=== PATIENT | male | born 1990 | race African-American/Black ===

== ENCOUNTER 2021-04-28 16:10 | Emergency (ER) | payer MEDICAID ==
[~2021-04-28] VITALS: Ht 182.9 cm; Wt 90.0 kg
[2021-04-28 16:16] VITALS: BP 128/70
[2021-04-28] MEDS ORDERED: BUPR300T52 MT (18:18)
== END 2021-04-28 18:57 | disposition home or self-care (01) ==
LOC: ER 16:10
DX: Z76.0 Encounter for issue of repeat prescription (principal)
CPT/HCPCS: 99283

== ENCOUNTER 2021-04-30 12:21 | Emergency (ER) | payer MEDICAID ==
[~2021-04-30] VITALS: Ht 180.3 cm; Wt 91.0 kg
[~2021-04-30 12:21] MED LIST: BUPR300T52 MT
[2021-04-30 14:12] LABS: BASOPHILS % 0.4 % (0.0-2.0); EOSINOPHILS % 0.5 % (0.0-5.0); HEMATOCRIT. 42.4 % (42.0-52.0); HEMOGLOBIN. 14.2 g/dL (14.0-18.0); LYMPHOCYTES % 42.4 % (20.0-50.0); MEAN CORPUSCULAR HEMOGLOBIN 31.5 pg (28.0-32.0); MEAN CORPUSCULAR VOLUME 93.8 fL (80.0-94.0); MEAN PLATELET VOLUME 9.1 fl (7.4-10.4); MONOCYTES % 8.5 % (2.0-8.0); NEUTROPHILS % 48.2 % (40.0-76.0); PLATELET 159 x1000/uL (130-400); RED BLOOD CELL COUNT 4.52 mill/uL (4.7-6.1)
[2021-04-30 14:16] LABS: CHLORIDE 107 mEq/L (98-107)
[2021-04-30 14:19] LABS: ETHANOL BLOOD < 10 mg/dL
[2021-04-30 15:41] LABS: CLARITY URINE CLEAR (CLEAR); COLOR URINE YELLOW (YELLOW); KETONES URINE NEGATIVE (NEGATIVE); LEUKOCYTE ESTERASE URINE NEGATIVE (NEGATIVE); NITRITE URINE NEGATIVE (NEGATIVE); OCCULT BLOOD URINE NEGATIVE (NEGATIVE); PROTEIN URINE NEGATIVE (NEGATIVE); SPECIFIC GRAVITY URINE 1.009 (1.005-1.030); UROBILINOGEN URINE 0.2 E.U./dL (0.2-1.0)
[2021-04-30 16:14] LABS: *BARBITURATES SCREEN URINE NEGATIVE (NEGATIVE); *BENZODIAZEPINES SCREEN URINE NEGATIVE (NEGATIVE); *COCAINE SCREEN URINE NEGATIVE (NEGATIVE); METHADONE URINE SCREEN NEGATIVE (NEGATIVE); OPIATES URINE SCREEN NEGATIVE (NEGATIVE)
[2021-04-30 16:15] LABS: *AMPHETAMINES SCREEN URINE NEGATIVE (NEGATIVE); CANNABINOID URINE SCREEN NEGATIVE (NEGATIVE); PHENCYCLIDINE URINE SCREEN NEGATIVE (NEGATIVE)
[2021-04-30] MEDS ORDERED: QUETIAPINE FUMARATE 25MG TABLET PO STA (22:35)
[2021-04-30] MEDS ORDERED: BUPROPION HCL 150MG TABLET XL 24HR PO STA (22:35)
[2021-05-01] MEDS: BUPROPION HCL 150MG TABLET XL 24HR PO SCH ×2 (09:00→12:52)
[2021-05-01] MEDS ORDERED: LORAZEPAM 1MG TABLET PO ONE ×2 (10:00→16:30)
[2021-05-01] MEDS: QUETIAPINE FUMARATE 25MG TABLET PO SCH (21:37)
[2021-05-02] MEDS ORDERED: LORAZEPAM 1MG TABLET PO ONE (09:15)
[2021-05-02] MEDS: BUPROPION HCL 150MG TABLET XL 24HR PO SCH (09:29)
[2021-05-02] MEDS: QUETIAPINE FUMARATE 25MG TABLET PO SCH (21:31)
[2021-05-03] MEDS: BUPROPION HCL 150MG TABLET XL 24HR PO SCH (10:16)
[2021-05-03] MEDS ORDERED: LORAZEPAM 1MG TABLET PO ONE (12:45)
[2021-05-03] MEDS ORDERED: LORAZEPAM 1MG TABLET PO SCH (14:00)
[2021-05-03] MEDS: QUETIAPINE FUMARATE 25MG TABLET PO SCH (22:00)
[2021-05-03 23:00] VITALS: BP 113/56
== END 2021-05-03 23:36 ==
LOC: ER 12:21
DX: U07.1 COVID-19 (principal); F23 Brief psychotic disorder; R45.851 Suicidal ideations; F31.9 Bipolar disorder, unspecified; F90.9 Attention-deficit hyperactivity disorder, unspecified type; Z75.1 Person awaiting admission to adequate facility elsewhere
CPT/HCPCS: 36415; 80053; 80305; 80307; 80320; 80329; 81003; 85025; 99285; C9803; U0003; U0005; G0480

== ENCOUNTER 2021-07-18 21:20 | Emergency (ER) | payer MEDICAID, MEDICARE ==
[~2021-07-18] VITALS: Ht 182.9 cm; Wt 95.0 kg
[2021-07-18] MEDS ORDERED: IBUPROFEN 600MG TABLET PO ONE (22:45)
[2021-07-18] MEDS ORDERED: DIPHENHYDRAMINE 25MG CAPSULE PO ONE (22:45)
[2021-07-18 23:04] LABS: BASOPHILS % 0.3 % (0.0-2.0); EOSINOPHILS % 0.9 % (0.0-5.0); HEMATOCRIT. 41.8 % (42.0-52.0); HEMOGLOBIN. 13.8 g/dL (14.0-18.0); MEAN CORPUSCULAR HEMOGLOBIN 30.5 pg (28.0-32.0); MEAN CORPUSCULAR VOLUME 92.7 fL (80.0-94.0); MEAN PLATELET VOLUME 9.4 fl (7.4-10.4); NEUTROPHILS % 56.8 % (40.0-76.0); PLATELET 177 x1000/uL (130-400); RED BLOOD CELL COUNT 4.51 mill/uL (4.7-6.1); RED CELL DISTRIBUTION WIDTH 13.4 % (11.6-14.6)
[2021-07-18 23:06] LABS: CLARITY URINE CLEAR (CLEAR); COLOR URINE YELLOW (YELLOW); KETONES URINE TRACE (NEGATIVE); LEUKOCYTE ESTERASE URINE 1+ (NEGATIVE); NITRITE URINE NEGATIVE (NEGATIVE); OCCULT BLOOD URINE NEGATIVE (NEGATIVE); PROTEIN URINE NEGATIVE (NEGATIVE); SPECIFIC GRAVITY URINE 1.034 (1.005-1.030)
[2021-07-18 23:14] LABS: CHLORIDE 109 mEq/L (98-107)
[2021-07-18 23:20] LABS: *AMPHETAMINES SCREEN URINE NEGATIVE (NEGATIVE); *BARBITURATES SCREEN URINE NEGATIVE (NEGATIVE); *BENZODIAZEPINES SCREEN URINE NEGATIVE (NEGATIVE); *COCAINE SCREEN URINE NEGATIVE (NEGATIVE)
[2021-07-18 23:20] LABS: ETHANOL BLOOD < 10 mg/dL
[2021-07-18 23:21] LABS: CANNABINOID URINE SCREEN PRESUMTIVE POSITIVE (NEGATIVE); METHADONE URINE SCREEN NEGATIVE (NEGATIVE); OPIATES URINE SCREEN NEGATIVE (NEGATIVE); PHENCYCLIDINE URINE SCREEN NEGATIVE (NEGATIVE)
[2021-07-19] MEDS: SULFAMETHOXAZOLE/TRIMETHOPRIM 800/160MG TABLET PO SCH ×2 (00:01→09:31)
[2021-07-19] MEDS ORDERED: ARIPIPRAZOLE 5MG TABLET PO SCH (09:45)
[2021-07-19] MEDS ORDERED: BUPROPION HCL 150MG TABLET XL 24HR PO SCH (10:00)
[2021-07-19 11:37] VITALS: BP 127/66
[2021-07-19] MEDS ORDERED: QUETIAPINE FUMARATE 25MG TABLET PO SCH (21:00)
== END 2021-07-19 11:49 | disposition home or self-care (01) ==
LOC: ER 21:20
DX: R45.851 Suicidal ideations (principal); N39.0 Urinary tract infection, site not specified; F32.9 Major depressive disorder, single episode, unspecified; F20.9 Schizophrenia, unspecified; Z20.822 Contact with and (suspected) exposure to COVID-19
CPT/HCPCS: 36415; 80053; 80305; 80307; 80320; 80329; 81003; 85025; 99285; C9803; Q0163; U0003; U0005; G0480